=== PATIENT | female | born 1955 | race Caucasian/White ===

== ENCOUNTER → 2018-12-08 15:54 | Outpatient (CLI) | payer OTHER, SELFPAY ==
--- NOTE | 2018-12-08 | COLBX_PTH ---
PATIENT: JOANNE CAREY LOC: [facility] U#:[id number] AGE/SX: 69/F ROOM: RE12/08/[address]: Dr. Benson Lopes MD : [id number] BED: DIS: SPEC #: [id number] RECD: 12/08/18 15:51 STATUS: FREDERIC SAENZLeda #: [id number] MUKUND: 12/08/18 00:[address]: Benson Lopes DEPT: SURGICAL PATHOLOGY RECD BY: Julia Josue ENTERED: 12/10/18 16:56 SP TYPE: COLON BX OTHR DR: Dr. Gabby Rod DO Tissues: Rectum, NOS Procedures: Surgery Specimen Level IV HEADER OPERATION: Colonoscopy with hot snare and with coag Argon plasma PRE-OP DIAGNOSIS: Z86.010 TISSUE SUBMITTED: Rectal polyps MICROSCOPIC DIAGNOSIS Rectal polyps, biopsy: Fragments of tubulovillous adenoma. SJ:terrance 12/12/18 MICROSCOPIC DESCRIPTION Slides are reviewed. GROSS DESCRIPTION Received in fixative is one container labeled with the patient's name and designated rectal polyps. The specimen consists of multiple fragments of cornelius-pink polyp that in aggregate measure 2.5 x 2 x 0.3 cm. The entire specimen is submitted in one cassette. / SJ:terrance 12/11/18 TC:1 CPT: 28921
== END ==
PROVIDERS: Family Provider Internal Medicine; PCP Internal Medicine; Referring Provider Surgery; Visit Provider Surgery
DX: Z86.010 Personal history of colon polyps (principal)
CPT/HCPCS: 88305

== ENCOUNTER 2024-02-07 10:16 | Inpatient (IN) | payer MEDICARE, BC, SELFPAY ==
[2024-02-07] VITALS (29 sets, daily range): BP systolic 89–154; BP diastolic 46–104; PULSE 82–241; RESP 12–20; TEMP 36.6–37.1; O2SAT 88–100; BMI 42.6; BMI 39.7
--- NOTE | 2024-02-07 10:22 | EKG12_ITS ---
Test Reason : HIGH HR Blood Pressure : */* mmHG Vent. Rate : 185 BPM Atrial Rate : * BPM P-R Int : * ms QRS Dur : 72 ms QT Int : 234 ms P-R-T Axes : * 31 221 degrees QTcB Int : 410 ms Critical Test Result: High HR Atrial fibrillation with rapid ventricular response Septal infarct , age undetermined Marked ST abnormality, possible inferior subendocardial injury Marked ST abnormality, possible anterolateral subendocardial injury Abnormal ECG Confirmed by HÉCTOR ZAMORA MD ([id number]), city editor MAURILIO HERNANDEZ ([id number]) on 02/09/2024 10:43:50 AM Referred By: Confirmed By: HÉCTOR ZAMORA MD
--- NOTE | 2024-02-07 10:22 | RAD_ITS ---
STUDY: X-RAY CHEST REASON FOR EXAM: Female, 68 years old. Palpitations TECHNIQUE: Single AP portable view of the chest. COMPARISON: None. FINDINGS: EKG electrodes are seen. The lungs are clear and expanded. There is no demonstrated pleural abnormality. Normal size heart. Normal mediastinum and violeta. Normal visualized pulmonary arteries. There is atherosclerotic tortuosity of the aortic arch and descending thoracic aorta. There are diffuse degenerative changes of the visualized thoracic spine. Normal visualized ribs, clavicles, and shoulders. There is no demonstrated abnormality of the visualized soft tissue structures of the upper abdomen. RAD/Chest 1 View (Portable) IMPRESSION: No acute abnormality is seen. Electronically Signed: Donald Hull MD at 10:54 EST ,
--- NOTE | 2024-02-07 10:26 | EDS_ITS ---
HPI History of Present Illness Chief Complaint: Palpitations Informant: patient and EMS Narrative Narrative: 68-year-old female presenting to the emergency room with chief complaint of A- fib. Patient states that she woke this morning at 0500 hrs. feeling her heart having palpitations. She attempted to ambulate but became dyspneic. She went saw her primary care provider who did an EKG that showed A-fib. She has no history of atrial fibrillation. She currently takes no medications. She denies any chest pain. She notes exertional dyspnea. She notes that she had COVID in October and a few weeks later had a cough sore throat and fever. Those symptoms have resolved. [facility] Medical History (Updated 02/07/24 @ 10:[address] Macho Luna DO) Abnormality of breast on screening mammography IBS (irritable bowel syndrome) Tubulovillous adenoma Rectal polyp Hyperlipemia Colonic polyp Prediabetes Obesity Home Medications ?Medication ?Instructions ?Recorded ?Last Taken ?Type NK 02/07/24 Unknown History Allergy/AdvReac Type Severity Reaction Status Date / Time No Known Allergies Allergy Verified 02/07/24 10:28 Social History Smoking Status: Never smoker ROS ROS ED Constitutional Constitutional ED: Denies chills or weight loss Eyes Eyes: Denies change in vision or diplopia ENT ENT ED: Denies ear pain, rhinorrhea or sore throat Cardiovascular Cardiovascular: Reports palpitations and racing heartbeat; Denies chest pain or orthopnea Respiratory/Chest Respiratory/Chest: Reports dyspnea and dyspnea on exertion; Denies cough or orthopnea Gastrointestinal Gastrointestinal: Denies abdominal pain, diarrhea, nausea or vomiting Genitourinary Genitourinary ED: Denies dysuria, hematuria or urinary frequency Musculoskeletal Musculoskeletal: Denies arthralgias or myalgias Integumentary Denies abscess or rash Neurologic Neurologic: Denies headache(s) or weakness Psychiatric Psychiatric: Denies anxiety, depression, suicidal ideation or suicidal thoughts Endocrine Endocrinology: Denies polydipsia, polyphagia or polyuria Allergic/Immunologic Allergic/Immunologic ED: Denies mouth swelling, tongue swelling or urticaria EXAM Physical Exam Const Vital Signs: 02/07/24 10:16 02/07/24 10:24 02/07/24 10:46 Temperature 98.7 F Temperature Source Oral Pulse Rate 241 H 136 H 133 H Respiratory Rate 18 20 H 18 Blood Pressure 154/94 H 154/94 H 131/85 H Blood Pressure Mean 114 114 100 Pulse Ox 88 97 98 Oxygen Delivery Method Room Air Nasal Cannula Nasal Cannula Oxygen Flow Rate (L/min) 2 2 02/07/24 11:16 02/07/24 11:29 02/07/24 11:30 Temperature 98 F Temperature Source Oral Pulse Rate 130 H 130 H 130 H Respiratory Rate 18 14 18 Blood Pressure 134/70 H 134/74 H 138/86 H Blood Pressure Mean 91 94 103 Pulse Ox 98 99 98 Oxygen Delivery Method Nasal Cannula Nasal Cannula Nasal Cannula Oxygen Flow Rate (L/min) 2 2 2 Positive well nourished and well developed General Appearance ED: well developed and NAD HEENT Reports normocephalic, head/scalp atraumatic and moist mucous membranes Eyes PERRL and EOMs intact bilaterally Neck no lymphadenopathy, supple and no JVD Resp normal respiratory effort and clear to auscultation bilaterally Cardio no murmurs Rate: tachycardic Rhythm: abnormal rhythm irregularly irregular GI normal to inspection, nondistended, normoactive bowel sounds and non-tender Palpation: soft Back/Spine no CVA tenderness and normal ROM Extremity normal to inspection General Extremety ED: Negative for edema General Extremity: Negative for edema Neuro oriented x3 and CN's II-XII intact bilaterally Sensorium / Orientation: alert Motor Exam: strength 5/5 throughout Psych mental status grossly normal Mood & Affect: Negative for depressed or tearful Skin no rashes or lesions noted and no wounds MDM MDM MDM Narrative Medical decision making narrative: Differential diagnosis includes but not limited to cardiac dysrhythmia pulmonary embolism electrolyte abnormality anemia thyroid dysfunction coronary artery disease Initial EKG shows atrial fibrillation with rapid ventricular response. While I was speaking with the patient obtaining the history and physical the patient's morphology changed and she went into a narrow complex rate of around 244. She appeared slightly more pale but was not hypotensive. This lasted for approximately 2 minutes and then she went back into A-fib with RVR on the monitor. Patient received a 20 mg Cardizem bolus. This lowered her heart rate to around 130 and she began to feel better. My independent interpretation of the chest x- ray is no acute process. White count 8.1 hemoglobin 15.6 platelet count 334. Sodium potassium magnesium within normal limits. Troponin 16. TSH 1.33. [id number] score is 1. Patient's heart rate continues to be greater than 100 (133bpm at 1123 hrs) she was placed on a Cardizem drip. Plan will be admission into hospital. History & Record Review Discussion w/independent historian: EMS personnel and Patient Lab Data Attestation: I reviewed the patient's lab results. Labs: Laboratory Results - last 24 hr 02/07/24 10:12 WBC 8.1 RBC 5.10 Hgb 15.6 H Hct 46.0 MCV 90.2 MCH 30.6 MCHC 33.9 RDW Std Deviation 43.6 RDW Coeff of Irma 13.1 Plt Count 334 MPV 9.9 Immature Gran % (Auto) 0.200 Neut % (Auto) 48.5 Lymph % (Auto) 36.3 Mower % (Auto) 10.4 H Eos % (Auto) 3.9 Baso % (Auto) 0.7 Absolute Neuts (auto) 3.9 Absolute Lymphs (auto) 2.94 Nucleated RBC % 0 Sodium 141 Potassium 4.2 Chloride 108 H Carbon Dioxide 27.0 Anion Gap 5 BUN 17 Creatinine 0.92 Estim Creat Clear Calc 71.04 Est GFR (MDRD) Af Amer 78 Est GFR (MDRD) Non-Af 64 BUN/Creatinine Ratio 18.4 Glucose 135 H Calcium 9.5 Magnesium 2.0 Troponin I High Sens 16 TSH 1.330 Radiography Diagnostic Testing: Clinical Impression(s) from Imaging Studies Chest X-Ray 02/07/24 10:22 IMPRESSION: No acute abnormality is seen. Electronically Signed: Donald Hull MD at 10:54 EST , Management Discussion w/another healthcare provider: Hospitalist (Dr Smart) and Wireless Sales Manager (Dr Alston) Discharge Plan Dx/Rx/DC Orders Clinical Impression: Atrial fibrillation with RVR Disposition [facility]
[2024-02-07] MEDS: dilTIAZem 25 MG/5 ML Vial 20 MG IV BOLUS ×2 (10:30→11:28)
[2024-02-07 10:41] LABS: Absolute Lymphocyte Count 2.94 X10^3/uL (0.83-4.51); Absolute Neutrophil Count 3.9 X10^3/uL (2.0-7.7); Basophil# 0.06 X10^3/uL; Basophil% 0.7 % (0-1); Eosinophil# 0.32 X10^3/uL; Eosinophils% 3.9 % (0-5); Hemoglobin 15.6 g/dL (12.0-15.0); Lymphocyte # 2.94 X10^3/ul (0.83-4.51); Lymphocyte % 36.3 % (19-41); Mean Corp Hgb Conc 33.9 g/dL (32-36); Mean Corpuscular Hgb 30.6 pg (27.0-32.0); Mean Corpuscular Volume 90.2 fL (81-99); Mean Platelet Vol. 9.9 fl (6.2-12.0); Monocyte# 0.84 X10^3/uL; Monocyte% 10.4 % (0-10); NRBC Flagged by Analyzer 0 % (0-5); Neutrophil # 3.93 X10^3/uL (2.7-7.7); Neutrophil % 48.5 % (47-70); Platelet Count 334 K/mm3 (150-450); RBC Distribution Width CV 13.1 % (11.6-14.6); RBC Distribution Width SD 43.6 fl (35.1-43.9); White Blood Count 8.1 K/mm3 (4.4-11.0)
[2024-02-07 11:09] LABS: Anion Gap 5 (5-15); BUN 17 mg/dL (7-18); BUN/Creat Ratio 18.4 RATIO (10-20); Calcium,Total 9.5 mg/dL (8.5-10.1); Chloride 108 mmol/L (98-107); Creatinine, Serum 0.92 mg/dL (0.55-1.02); EST Glomerular Filtration Rate 64 mL/min (>60); Est Glom Filt Rate - Afr Amer 78 mL/min (>60); Estimated Creatinine Clearance 71.04 ml/min; Glucose 135 mg/dL (74-106); Potassium 4.2 mmol/L (3.5-5.1); Sodium Level 141 mmol/L (136-145); Troponin-I HS 16 pg/mL (3.0-54.0)
[2024-02-07] MEDS: Diltiazem 125 MG in Dextrose 5%-Water (100mL Bag) 100 ML IV (11:29)
--- NOTE | 2024-02-07 12:22 | HP.PCM.HOS_ITS ---
HPI - General General Date of Admission: 02/07/24 Date of Service: 02/07/24 Chief Complaint: Palpitations and shortness of breath HPI Narrative JOANNE CAREY, is a 68 F who presented to [facility] ED on 02/07/2024 with palpitations and shortness of breath. Patient woke up this morning at 5 AM having palpitations. Denies any previous history of palpitations. She got up and attempted to ambulate but became short of breath and dizzy with this. She saw her primary care provider this morning who did an EKG and found A-fib with RVR. Patient has no significant medical history, is on no medications at home. She was then sent to the ED for further evaluation. EKG in the ED showed A-fib with RVR with rate around 150. Patient's blood pressure was normotensive. She was given a 20 mg Cardizem bolus and this lowered her heart rate to around 130 and she felt improved with this. Labs were fairly unremarkable. TSH normal. Potassium and magnesium are normal. Patient did not convert after the Cardizem bolus and heart rate remained in the 130s to low 140s, so she was started on a Cardizem drip and hospitalist was contacted for admission. I saw the patient at bedside in the ED, son and sister were present. Patient was sitting up comfortably in bed, conversing normally, no acute distress. She was breathing comfortably on room air. She denied any palpitations currently. Denied any shortness of breath at rest. Her heart rate was maintaining in the 130s on telemetry during my encounter with her. Patient denies any prior cardiac history. She is not a smoker. She does not drink alcohol regularly. She drinks minimal caffeine. She has never had an episode like this before. She otherwise denies any acute pain or discomfort. Will be admitted for further management. [facility] Medical History (Updated 02/08/24 @ 08:[address] Mike Alston MD) Abnormality of breast on screening mammography IBS (irritable bowel syndrome) Tubulovillous adenoma Rectal polyp Hyperlipemia Colonic polyp Prediabetes Obesity Home Medications ?Medication ?Instructions ?Recorded ?Last Taken ?Type ruxolitinib 1.5 % topical cream 1 applic topical BID skin condition 02/07/24 02/06/24 History (Opzelura) Allergy/AdvReac Type Severity Reaction Status Date / Time No Known Allergies Allergy Verified 02/07/24 10:28 Social History Smoking Status: Never smoker ROS Constitutional Constitutional: Denies chills, fatigue, fever(s) or weakness Eyes Eyes: Denies change in vision Cardiovascular Cardiovascular: Reports dyspnea on exertion and rapid heart rate; Denies chest pain, lightheadedness, palpitations or syncope Respiratory/Chest Respiratory/Chest: Denies cough, shortness of breath at rest or wheezing Gastrointestinal Gastrointestinal: Denies abdominal pain Neurologic Neurologic: Denies dizziness or headache(s) Vital Signs Vital Signs Vital Signs: 02/07/24 10:16 02/07/24 10:24 02/07/24 10:46 Temperature 98.7 F Temperature Source Oral Pulse Rate 241 H 136 H 133 H Respiratory Rate 18 20 H 18 Blood Pressure 154/94 H 154/94 H 131/85 H Blood Pressure Mean 114 114 100 Pulse Ox 88 97 98 Oxygen Delivery Method Room Air Nasal Cannula Nasal Cannula Oxygen Flow Rate (L/min) 2 2 02/07/24 11:16 02/07/24 11:29 02/07/24 11:30 Temperature 98 F Temperature Source Oral Pulse Rate 130 H 130 H 130 H Respiratory Rate 18 14 18 Blood Pressure 134/70 H 134/74 H 138/86 H Blood Pressure Mean 91 94 103 Pulse Ox 98 99 98 Oxygen Delivery Method Nasal Cannula Nasal Cannula Nasal Cannula Oxygen Flow Rate (L/min) 2 2 2 Weight Weight: 111 kg Body Mass Index (BMI) 42.6 Physical Exam Const alert, oriented x3 and no apparent distress Constitutional Narrative: Pleasant elderly female, class II obesity, sitting up comfortably in bed, conversing normally, no acute distress. General Appearance: cooperative and comfortable HEENT normocephalic, head/scalp atraumatic, hearing grossly normal bilaterally, nasal mucous membranes and turbinates normal and moist oral mucous membranes Eyes PERRL, EOMs intact bilaterally and conjunctivae normal Neck full ROM Chest inspection of chest normal Resp normal respiratory effort, normal air movement, no use of accessory muscles and clear to auscultation bilaterally Cardio no murmurs and peripheral pulses 2+ throughout Cardio Narrative: Tachycardic, irregular rhythm. GI normal to inspection, nondistended, normoactive bowel sounds, soft to palpation, non-tender and non-distended Back/Spine normal ROM Extremity normal to inspection, full ROM and no pedal edema Skin no rashes or lesions noted Psych mental status grossly normal Results Lab / Micro Data 02/08/24 05:58 02/08/24 05:58 Labs: Laboratory Results - last 24 hr 02/07/24 10:12: WBC 8.1, RBC 5.10, Hgb 15.6 H, Hct 46.0, MCV 90.2, MCH 30.6, MCHC 33.9, RDW Std Deviation 43.6, RDW Coeff of Irma 13.1, Plt Count 334, MPV 9.9, Immature Gran % (Auto) 0.200, Neut % (Auto) 48.5, Lymph % (Auto) 36.3, Clare % (Auto) 10.4 H, Eos % (Auto) 3.9, Baso % (Auto) 0.7, Absolute Neuts (auto) 3.9, Absolute Lymphs (auto) 2.94, Nucleated RBC % 0, Sodium 141, Potassium 4.2, C hloride 108 H, Carbon Dioxide 27.0, Anion Gap 5, BUN 17, Creatinine 0.92, Estim Creat Clear Calc 71.04, Est GFR (MDRD) Af Amer 78, Est GFR (MDRD) Non-Af 64, BUN/Creatinine Ratio 18.4, Glucose 135 H, Calcium 9.5, Magnesium 2.0, Troponin I High Sens 16, TSH 1.330 Imaging Radiology Impression Chest X-Ray 02/07/24 10:22 IMPRESSION: No acute abnormality is seen. Electronically Signed: Donald Hull MD at 10:54 EST , Assessment & Plan Assessment/Plan (1) Atrial fibrillation with RVR: PLAN: Plan Patient is a 68-year-old female who presented [facility] ED on 02/07/2024 with palpitations. 1. New onset A-fib with RVR ? Admit under inpatient status to PCU. EKG on admit showed A-fib with RVR with rate in the 140s. On review of telemetry it appears patient's heart rate is regularly irregular with possible sawtooth pattern waves noted concerning for atrial flutter. TSH normal. Will continue treating with Cardizem drip for now and start p.o. Lopressor 25 mg twice daily. If patient has not converted to sinus rhythm by tomorrow morning, will plan to consult cardiology. Echo ordered. [id number] score of 2 for age and female. Gave dose of therapeutic Lovenox in the ED and will start on Eliquis 5 mg twice daily. 2. Class II obesity ? BMI 39 on admit. Encouraged lifestyle modifications. Complicates hospital course, care and prognosis. DVT prophylaxis: Lovenox CODE STATUS: Full code, verified Expected disposition: Home, 2 to 3 days Total clinical time spent by myself addressing the patient's medical issues, reviewing all the data, and collaborating with patient's care team: 55 minutes. Charges/Coding Visit Charges Inpatient E&M: 99161 Init Hosp L2
--- NOTE | 2024-02-07 12:26 | ECHOCS_ITS ---
Reason For Study: Afib, Aflutter Procedure This was a 2D Doppler, Color Flow transthoracic echocardiogram. Contrast injection was performed. Exam performed portable in patient room. Left Ventricle Normal LV size. Left ventricular systolic function is normal. The left ventricular ejection fraction is 60 %. No regional wall motion abnormalities noted. Right Ventricle Normal RV size. Normal systolic function. Atria Normal left atrium. Normal right atrium. Bubble contrast study negative for right to left interatrial shunt. Mitral Valve Normal mitral valve. Tricuspid Valve Normal tricuspid valve. Aortic Valve Trisinus/trileaflet aortic valve. Pulmonic Valve The pulmonic valve is not well visualized. Great Vessels Normal aortic root. The pulmonary artery is normal size. Inferior vena cava collapse with respiration. Pericardium/Pleural No pericardial effusion. Medication Performed a rapid injection of agitated mix of 9 cc saline and 1cc air to assess for atrial septal defect. Diluted definity 2.5ml given slow IV push to enhance endocardial definition. MMode/2D Measurements & Calculations LVIDd: 4.2 cm IVSd: 1.3 cm asc Aorta Diam: 3.1 cm LVIDs: 3.0 cm LVPWd: 1.3 cm RVDd: 3.8 cm FS: 29.4 % LAV(MOD-bp): 43.7 ml LVAd ap4: 28.5 cm2 SV(MOD-sp4): 57.4 ml LAV(MOD-bp) Indexed: 20.8 ml/m2 LVLd ap4: 7.6 cm SI(MOD-sp4): 27.3 ml/m2 LAV(MOD-sp2): 44.1 ml EDV(MOD-sp4): 89.3 ml LAV(MOD-sp4): 36.5 ml EDV(sp4-el): 90.2 ml LVAs ap4: 14.8 cm2 LVLs ap4: 6.1 cm ESV(MOD-sp4): 32.0 ml ESV(sp4-el): 30.7 ml EF(MOD-sp4): 64.2 % EF(sp4-el): 66.0 % SV(sp4-el): 59.6 ml LA A4 area: 15.9 cm2 LA dimension(2D): 3.9 cm RA A4 area: 14.5 cm2 TAPSE: 1.7 cm Doppler Measurements & Calculations MV E max tad: 57.2 cm/sec Lat Peak E' Tad: 18.2 cm/sec Med Peak E' Tad: 15.1 cm/sec E/E' lat: 3.1 E/E' med: 3.8 Ao V2 max: 121.9 cm/sec LV V1 max: 83.6 cm/sec PA V2 max: 59.2 cm/sec Ao max P.0 mmHg LV V1 max P.8 mmHg Ao V2 mean: 90.5 cm/sec LV V1 mean P.5 mmHg Ao mean P.5 mmHg LV V1 mean: 57.2 cm/sec Ao V2 VTI: 22.8 cm LV V1 VTI: 17.2 cm AV (velocity ratio): 0.75 TR max tad: 236.9 cm/sec TR max P.5 mmHg ECHO/Echo Complete W/ Contrast Interpretation Summary Normal LV size. Left ventricular systolic function is normal. The left ventricular ejection fraction is 60 %. Bubble contrast study negative for right to left interatrial shunt. Contrast injection was performed. Ordering Physician: Harley Smart Referring Physician: Tong Mo Performed By: Tiffanie Vergara RDCS, RVT
[2024-02-07] MEDS: Metoprolol Tartrate 25 MG Tablet PO ×2 (12:59→21:11)
[2024-02-07] MEDS: Enoxaparin 100 MG/ML Syringe SC (12:59)
[2024-02-07 19:27] LABS: Hemoglobin A1c 5.8 % (3.8-5.6)
[2024-02-07] MEDS: Diltiazem 125 MG in Dextrose 5%-Water (100mL Bag) 100 ML 15 MG IV (21:09)
[2024-02-07] MEDS: APIXABAN 5 MG TABLET PO (21:11)
[2024-02-07] MEDS: 0.9% Saline Lock 10 ML Syringe IV (21:18)
[2024-02-08] VITALS (26 sets, daily range): BP systolic 101–135; BP diastolic 47–82; PULSE 70–108; RESP 11–23; TEMP 36.2–36.6; O2SAT 94–99
[2024-02-08] MEDS: Diltiazem 125 MG in Dextrose 5%-Water (100mL Bag) 100 ML 15 MG IV (04:42)
[2024-02-08 06:26] LABS: Hematocrit 46.2 % (37-47); Hemoglobin 15.6 g/dL (12.0-15.0); Mean Corp Hgb Conc 33.8 g/dL (32-36); Mean Corpuscular Hgb 30.6 pg (27.0-32.0); Mean Corpuscular Volume 90.8 fL (81-99); Mean Platelet Vol. 9.9 fl (6.2-12.0); Platelet Count 285 K/mm3 (150-450); RBC Distribution Width CV 13.2 % (11.6-14.6); RBC Distribution Width SD 43.8 fl (35.1-43.9); Red Blood Count 5.09 M/mm3 (4.2-5.4); White Blood Count 6.9 K/mm3 (4.4-11.0)
[2024-02-08 06:48] LABS: Anion Gap 5 (5-15); BUN 16 mg/dL (7-18); BUN/Creat Ratio 22.4 RATIO (10-20); Chloride 110 mmol/L (98-107); Cholesterol 322 mg/dL (200); Creatinine, Serum 0.71 mg/dL (0.55-1.02); EST Glomerular Filtration Rate 87 mL/min (>60); Est Glom Filt Rate - Afr Amer 105 mL/min (>60); Glucose 122 mg/dL (74-106); High Density Lipoprotein 59 mg/dL; Potassium 3.8 mmol/L (3.5-5.1); Sodium Level 138 mmol/L (136-145); Triglycerides 87 mg/dL; Very Low Density Lipoprotein 17 mg/dL (5-40)
--- NOTE | 2024-02-08 08:03 | PCM.CONS.C ---
Assessment & Plan Assessment/Plan (1) Atrial fibrillation with RVR: PLAN: Patient presents with atrial fibrillation with a rapid ventricular response rate. The exact precipitating etiology is not clear at this particular time. She does have a [id number] score of 2 and my recommendation at this time is to continue with anticoagulation, rate control with a beta-catherine and try and wean her off the diltiazem. She can be seen as an outpatient if her rate is better controlled for possible DC cardioversion. (2) Hyperlipemia: PLAN: She does have a severely elevated LDL. I would recommend at this time that she start a high intensity statin. At some point she would need a coronary calcium score for further evaluation and risk stratification. Thank you for allowing me to participate in the care of your patient. Please don't hesitate to call if any issues arise. HPI Consult Data Date of Consult: 02/08/24 HPI Narrative HPI Narrative: JOANNE CAREY, is a 68 F who presented to the emergency room on 1217 with palpitations and shortness of breath. She woke up yesterday with with the same. She says that she had not taken any increased amount of caffeinated beverages. She is under a lot of amount of stress. In the emergency room she was noted to be in atrial fibrillation with rapid ventricular response rate at about 150. She had previously presented to the urgent care facility. Blood work was done which was noted to be unremarkable. Electrolytes were unremarkable cardiology was consulted she was given intravenous diltiazem and then subsequently transferred to the telemetry unit. Cardiology was called this morning for further evaluation and management. She denies any chest pain or shortness of breath or paroxysmal nocturnal dyspnea pedal edema she had an echocardiogram performed which demonstrated preserved ejection fraction. [facility] Medical History (Updated 02/08/24 @ 08:[address] Mike Alston MD) Abnormality of breast on screening mammography IBS (irritable bowel syndrome) Tubulovillous adenoma Rectal polyp Hyperlipemia Colonic polyp Prediabetes Obesity Home Medications ?Medication ?Instructions ?Recorded ?Last Taken ?Type ruxolitinib 1.5 % topical cream 1 applic topical BID skin condition 02/07/24 02/06/24 History (Opzelura) Allergy/AdvReac Type Severity Reaction Status Date / Time No Known Allergies Allergy Verified 02/07/24 10:28 Social History Smoking Status: Never smoker ROS Constitutional Constitutional: Denies fever(s) or weight loss Eyes Eyes: Reports systems reviewed and no addt'l complaints, except as documented ENT HEENT: Reports systems reviewed and no addt'l complaints, except as documented Cardiovascular Cardiovascular: Denies chest pain at rest, chest pain with activity, dyspnea at rest, dyspnea on exertion, edema, palpitations or paroxysmal nocturnal dyspnea Respiratory/Chest Respiratory/Chest: Denies dyspnea on exertion, productive cough, shortness of breath at rest or shortness of breath with exertion Gastrointestinal Gastrointestinal: Denies change in bowel habits, nausea, vomiting or weight changes Genitourinary Genitourinary: Denies difficulty urinating Musculoskeletal Musculoskeletal: Denies joint stiffness or muscle weakness Integumentary Integumentary: Denies lesions Neurologic Neurologic: Denies dizziness or syncope Psychiatric Psychiatric: Denies anxiety Endocrine Endocrinology: Denies excessive sweating or fatigue Hematologic/Lymphatic Hematologic/Lymphatic: Denies anemia Allergic/Immunologic Allergic/Immunologic: Denies seasonal rhinorrhea Physical Exam Const alert, oriented x3 and no apparent distress General Appearance: cooperative HEENT hearing grossly normal bilaterally Head and Scalp: atraumatic Eyes EOMs intact bilaterally Neck General: normal visual inspection Chest inspection of chest normal and palpation of chest normal Resp normal respiratory effort Auscultation: clear to auscultation bilaterally Cardio S1 normal heart sound and S2 normal heart sound Jugular Venous Distention: JVD Rhythm: abnormal rhythm irregularly irregular GI normal to inspection, nondistended, normoactive bowel sounds Extremity normal capillary refill and no pedal edema Peripheral Pulses: Yes pulses 2+ throughout and femoral pulses present Skin no rashes or lesions noted Neuro oriented x3 and CN's II-XII intact bilaterally Psych Appearance: grossly normal and appropriate Risk Stratification Risk Stratification Applicable: No Objective Data Vital Signs: Vital Signs Temp Pulse Resp BP Pulse Ox O2 Del Method O2 Flow Rate 97.8 F 99 23 H 107/65 98 Room Air 2 02/08/24 03:00 02/08/24 07:00 02/08/24 07:00 02/08/24 07:00 02/08/24 07:00 02/08/24 07:00 02/07/24 12:00 Oxygen Flow Rate (L/min) 2 Oxygen Delivery Method Room Air Weight: 231 lb 7.766 oz Body Mass Index (BMI) 39.7 Intake & Output: Intake and Output for Last 24 Hours 02/06/24 02/07/24 02/08/24 23:59 23:59 23:59 Intake Total 510.08 / 645.08 240.0 / 240.0 Balance 510.08 / 645.08 240.0 / 240.0 Lab / Micro Data 02/08/24 05:58 02/08/24 05:58 Labs: Laboratory Results - last 24 hr 02/07/24 10:12: WBC 8.1, RBC 5.10, Hgb 15.6 H, Hct 46.0, MCV 90.2, MCH 30.6, MCHC 33.9, RDW Std Deviation 43.6, RDW Coeff of Irma 13.1, Plt Count 334, MPV 9.9, Immature Gran % (Auto) 0.200, Neut % (Auto) 48.5, Lymph % (Auto) 36.3, Lynn % (Auto) 10.4 H, Eos % (Auto) 3.9, Baso % (Auto) 0.7, Absolute Neuts (auto) 3.9, Absolute Lymphs (auto) 2.94, Nucleated RBC % 0, Sodium 141, Potassium 4.2, Chloride 108 H, Carbon Dioxide 27.0, Anion Gap 5, BUN 17, Creatinine 0.92, Estim Creat Clear Calc 71.04, Est GFR (MDRD) Af Amer 78, Est GFR (MDRD) Non-Af 64, BUN/Creatinine Ratio 18.4, Glucose 135 H, Hemoglobin A1c 5.8 H, Calcium 9.5, Magnesium 2.0, Troponin I High Sens 16, TSH 1.330 02/08/24 05:58: WBC 6.9, RBC 5.09, Hgb 15.6 H, Hct 46.2, MCV 90.8, MCH 30.6, MCHC 33.8, RDW Std Deviation 43.8, RDW Coeff of Irma 13.2, Plt Count 285, MPV 9.9, Sodium 138, Potassium 3.8, Chloride 110 H, Carbon Dioxide 24.0, Anion Gap 5, BUN 16, Creatinine 0.71, Estim Creat Clear Calc 80.60, Est GFR (MDRD) Af Amer 105, Est GFR (MDRD) Non-Af 87, BUN/Creatinine Ratio 22.4 H, Glucose 122 H, Calcium 9.0, Triglycerides 87, Cholesterol 322 H, LDL Cholesterol 246 H, VLDL Cholesterol 17, HDL Cholesterol 59 Cardiology Labs/Tests 02/07/24 10:12: WBC 8.1, RBC 5.10, Hgb 15.6 H, Hct 46.0, MCV 90.2, MCH 30.6, MCHC 33.9, Plt Count 334, MPV 9.9, Immature Gran % (Auto) 0.200, Neut % (Auto) 48.5, Lymph % (Auto) 36.3, Lynn % (Auto) 10.4 H, Eos % (Auto) 3.9, Baso % (Auto) 0.7, Absolute Neuts (auto) 3.9, Nucleated RBC % 0, Sodium 141, Potassium 4.2, Chloride 108 H, Carbon Dioxide 27.0, Anion Gap 5, BUN 17, Creatinine 0.92, Est GFR (MDRD) Af Amer 78, Est GFR (MDRD) Non-Af 64, BUN/Creatinine Ratio 18.4, Glucose 135 H, Hemoglobin A1c 5.8 H, Calcium 9.5, Magnesium 2.0 02/08/24 05:58: WBC 6.9, RBC 5.09, Hgb 15.6 H, Hct 46.2, MCV 90.8, MCH 30.6, MCHC 33.8, Plt Count 285, MPV 9.9, Sodium 138, Potassium 3.8, Chloride 110 H, Carbon Dioxide 24.0, Anion Gap 5, BUN 16, Creatinine 0.71, Est GFR (MDRD) Af Amer 105, Est GFR (MDRD) Non-Af 87, BUN/Creatinine Ratio 22.4 H, Glucose 122 H, Calcium 9.0, Triglycerides 87, Cholesterol 322 H, LDL Cholesterol 246 H, VLDL Cholesterol 17, HDL Cholesterol 59 Rhythm: EKG: ECHO: Stress Test: Cardiac Cath: PCI: CT Surgery: Holter monitor: EPS: PPM: CXR: Chest CT Scan: Radiography Diagnostic Testing: Radiology Impression Chest X-Ray 02/07/24 10:22 IMPRESSION: No acute abnormality is seen. Electronically Signed: Donald Hull MD at 10:54 EST , Echocardiogram 02/07/24 12:26 Interpretation Summary Normal LV size. Left ventricular systolic function is normal. The left ventricular ejection fraction is 60 %. Bubble contrast study negative for right to left interatrial shunt. Contrast injection was performed. Ordering Physician: Harley Smart Referring Physician: Tong Mo Performed By: Tifafnie Vergara RDCS, RVT
[2024-02-08] MEDS: APIXABAN 5 MG TABLET PO ×2 (09:28→21:08)
[2024-02-08] MEDS: Metoprolol Tartrate 50 MG Tablet PO ×3 (09:28→21:08)
--- NOTE | 2024-02-08 11:40 | CASEMGMT ---
NEVIN FOSTER Assessment: Face to Face with pt for initial transition planning/care coordination assessment. NEVIN FOSTER introduced self and role at [facility], pt voices understanding and consents to assessment. Pt is A&O x4 and answers all questions appropriately at this time. Pt sitting in bed in no distress. Pt son and daughter in room, pt agreeable to discussing DC plan with family in room. Care providers, pharmacy, and demographics verified/updated. Strata: 1 Admitting Dx: New Onset AFIB PCP: Chely Specialists: [facility] Preferred Pharmacy: [facility] Insurance: [employer] Prescription Benefit: yes LNOK: Daughter, Zunilda; Sister, Nirali. Living Arrangements: Pt lives alone in a 1 story home with no steps to enter. ADLs: Pt reports I at baseline. Transportation: Pt drives self and denies concerns with transportation. DME: Denies HHC/SNF: Denies Hx of. Pt states no concerns with going home at time of dc. Pt states no further concerns/needs. CM to follow. Advised pt to ask CM if any further question/concerns/needs arise, voices understanding. Pt Goal: Home Plan: Home with family support. Follow plan of care. Radha ROONEY CM
--- NOTE | 2024-02-08 11:44 | PCM.PN.HOSP ---
Reason for Visit Reason for Visit: Diagnoses Hyperlipidemia, unspecified (02/07/24) Unspecified atrial fibrillation (02/07/24) Subjective Subjective Saw patient at bedside this morning, son present. Patient appeared similar to yesterday, was sitting up comfortably in bed and in no acute distress. Currently denies any palpitations but did state that when she exerted herself overnight and this morning she did have worsening palpitations and some dizziness and lightheadedness. No other new concerns today. Objective Data Objective Data Vital Signs: Vital Signs Temp Pulse Resp BP Pulse Ox O2 Del Method O2 Flow Rate 97.2 F L 71 17 110/72 98 Room Air 2 02/08/24 09:00 02/08/24 11:15 02/08/24 11:15 02/08/24 11:15 02/08/24 11:15 02/08/24 11:15 02/07/24 12:00 Oxygen Flow Rate (L/min) 2 Oxygen Delivery Method Room Air Weight: 105 kg Body Mass Index (BMI) 39.7 Intake & Output: Intake and Output for Last 24 Hours 02/06/24 02/07/24 02/08/24 23:59 23:59 23:59 Intake Total 510.08 / 645.08 538.58 / 538.58 Balance 510.08 / 645.08 538.58 / 538.58 Lab / Micro Data 02/08/24 05:58 02/08/24 05:58 Labs: Laboratory Results - last 24 hr 02/07/24 10:12: Hemoglobin A1c 5.8 H 02/08/24 05:58: WBC 6.9, RBC 5.09, Hgb 15.6 H, Hct 46.2, MCV 90.8, MCH 30.6, MCHC 33.8, RDW Std Deviation 43.8, RDW Coeff of Irma 13.2, Plt Count 285, MPV 9.9, Sodium 138, Potassium 3.8, Chloride 110 H, Carbon Dioxide 24.0, Anion Gap 5, BUN 16, Creatinine 0.71, Estim Creat Clear Calc 80.60, Est GFR (MDRD) Af Amer 105, Est GFR (MDRD) Non-Af 87, BUN/Creatinine Ratio 22.4 H, Glucose 122 H, Calcium 9.0, Triglycerides 87, Cholesterol 322 H, LDL Cholesterol 246 H, VLDL Cholesterol 17, HDL Cholesterol 59 Radiography Diagnostic Testing: Radiology Impression Echocardiogram 02/07/24 12:26 Interpretation Summary Normal LV size. Left ventricular systolic function is normal. The left ventricular ejection fraction is 60 %. Bubble contrast study negative for right to left interatrial shunt. Contrast injection was performed. Ordering Physician: Harley Smart Referring Physician: Tong Mo Performed By: Tiffnaie Vergara, DEEJAY, RVT Physical Exam Const alert, oriented x3 and no apparent distress Constitutional Narrative: Pleasant elderly female, class II obesity, sitting up comfortably in bed, conversing normally, no acute distress. General Appearance: cooperative and comfortable HEENT normocephalic, head/scalp atraumatic, hearing grossly normal bilaterally, nasal mucous membranes and turbinates normal and moist oral mucous membranes Eyes PERRL, EOMs intact bilaterally and conjunctivae normal Neck full ROM Chest inspection of chest normal Resp normal respiratory effort, normal air movement, no use of accessory muscles and clear to auscultation bilaterally Cardio no murmurs and peripheral pulses 2+ throughout Cardio Narrative: Tachycardic, irregular rhythm. GI normal to inspection, nondistended, normoactive bowel sounds, soft to palpation, non-tender and non-distended Back/Spine normal ROM Extremity normal to inspection, full ROM and no pedal edema Skin no rashes or lesions noted Psych mental status grossly normal Assessment & Plan Assessment/Plan (1) Atrial fibrillation with RVR: PLAN: Plan Patient is a 68-year-old female who presented [facility] ED on 02/07/2024 with palpitations. 1. New onset A-fib with RVR ? Cardiology following. EKG on admit showed A-fib with RVR with rate in the 140s. On review of telemetry it appears patient's heart rate is regularly irregular with possible sawtooth pattern waves noted concerning for atrial flutter. TSH normal. Echo showed EF 60%, no other abnormalities. Started on Cardizem drip on admit along with p.o. Lopressor 25 mg daily. Rate improved on morning of 02/07 but remains in irregular rhythm. Per cardiology, discontinued Cardizem drip and increased to p.o. Lopressor 50 mg daily. [id number] score of 2 for age and female, will continue on Eliquis 5 mg twice daily. Continue cardiac monitoring. Hopeful for discharge home in the next 1 to 2 days. 2. Class II obesity ? BMI 39 on admit. Encouraged lifestyle modifications. Complicates hospital course, care and prognosis. 3. Hyperlipidemia ? Lipid profile with total cholesterol 322, LDL 246, HDL 59. Will start on atorvastatin 40 mg daily and continue this on discharge. DVT prophylaxis: Lovenox CODE STATUS: Full code, verified Expected disposition: Home, 1 to 2 days Total clinical time spent by myself addressing the patient's medical issues, reviewing all the data, and collaborating with patient's care team: 35 minutes. Charges/Coding Visit Charges Inpatient E&M: 43298 Subs Hosp L2
[2024-02-08] MEDS: 0.9% Saline Lock 10 ML Syringe IV (21:12)
[2024-02-09] VITALS (13 sets, daily range): BP systolic 94–119; BP diastolic 63–71; PULSE 55–137; RESP 16–18; TEMP 36.2–36.6; O2SAT 97–100
--- NOTE | 2024-02-09 08:13 | PCM.PN.CARD ---
Subjective Subjective Patient seen and evaluated. Still rather tachycardic this morning. Objective Data Vital Signs: Vital Signs Temp Pulse Resp BP Pulse Ox O2 Del Method O2 Flow Rate 97.6 F L 98 16 96/65 99 Room Air 2 02/09/24 08:08 02/09/24 08:08 02/09/24 08:08 02/09/24 08:08 02/09/24 08:08 02/09/24 08:08 02/07/24 12:00 Oxygen Flow Rate (L/min) 2 Oxygen Delivery Method Room Air Weight: 231 lb 7.766 oz Body Mass Index (BMI) 39.7 Intake & Output: Intake and Output for Last 24 Hours 02/07/24 02/08/24 02/09/24 23:59 23:59 23:59 Intake Total 510.08 / 645.08 902.33 / 1002.33 220 / 220 Balance 510.08 / 645.08 902.33 / 1002.33 220 / 220 Lab / Micro Data 02/08/24 05:58 02/08/24 05:58 Cardiology Labs/Tests Rhythm: EKG: ECHO: Stress Test: Cardiac Cath: PCI: CT Surgery: Holter monitor: EPS: PPM: CXR: Chest CT Scan: Physical Exam Const alert, oriented x3 and no apparent distress General Appearance: cooperative HEENT hearing grossly normal bilaterally Head and Scalp: atraumatic Eyes EOMs intact bilaterally Neck General: normal visual inspection Chest inspection of chest normal and palpation of chest normal Resp normal respiratory effort Auscultation: clear to auscultation bilaterally Cardio S1 normal heart sound and S2 normal heart sound Jugular Venous Distention: JVD Rhythm: abnormal rhythm irregularly irregular GI normal to inspection, nondistended, normoactive bowel sounds Extremity normal capillary refill and no pedal edema Peripheral Pulses: Yes pulses 2+ throughout and femoral pulses present Skin no rashes or lesions noted Neuro oriented x3 and CN's II-XII intact bilaterally Psych Appearance: grossly normal and appropriate Assessment & Plan Assessment/Plan (1) Atrial fibrillation with RVR: PLAN: Patient presents with atrial fibrillation with a rapid ventricular response rate. This appears to be more of an atrial flutter rhythm with a rate persisting at about 140 bpm. the exact precipitating etiology is not clear at this particular time. She does have a [id number] score of 2 and my recommendation at this time is to continue with anticoagulation, and perform a CIRA guided cardioversion. Hopefully then she can be discharged on medical therapy. Above discussed extensively with the patient and her son. (2) Hyperlipemia: PLAN: She does have a severely elevated LDL. I would recommend at this time that she start a high intensity statin. At some point she would need a coronary calcium score for further evaluation and risk stratification. Thank you for allowing me to participate in the care of your patient. Please don't hesitate to call if any issues arise.
[2024-02-09] MEDS: Metoprolol Tartrate 50 MG Tablet PO (08:22)
[2024-02-09] MEDS: APIXABAN 5 MG TABLET PO (08:22)
--- NOTE | 2024-02-09 08:41 | EKG12_ITS ---
Test Reason : Blood Pressure : */* mmHG Vent. Rate : 107 BPM Atrial Rate : 286 BPM P-R Int : * ms QRS Dur : 76 ms QT Int : 320 ms P-R-T Axes : * 12 -73 degrees QTcB Int : 427 ms Atrial flutter with variable A-V block Nonspecific ST abnormality Abnormal ECG When compared with ECG of 07-Feb-2024 10:23, MANUAL COMPARISON REQUIRED DATA IS UNCONFIRMED Confirmed by SERA NEFF, HÉCTOR ([id number]), writer editor NATO BORJA ([id number]) on 02/10/2024 9:56:47 AM Referred By: NICOLE Confirmed By: HÉCTOR ZAMORA MD
--- NOTE | 2024-02-09 08:41 | ECHOTEE_ITS ---
Reason For Study: AFIB Medication CIRA probe 6VT-D (SN [id number]) passed without difficulty. No complications were noted. Cetacaine Topical [place] given X3 orally. Versed 2 mg given slow IVP. Fentanyl 50 mcg given slow IVP. Performed a rapid injection of agitated mix of 9 cc saline and 1cc air to assess for atrial septal defect. Left Ventricle Normal LV size. Left ventricular systolic function is normal. The left ventricular ejection fraction is 60 %. No regional wall motion abnormalities noted. Right Ventricle Normal RV size. Normal systolic function. Atria Bubble contrast study is negative for PFO/ASD. Normal left atrium. No thrombus is detected in the left atrial appendage. Normal right atrium. Mitral Valve Normal mitral valve. Tricuspid Valve Normal tricuspid valve. Aortic Valve Trisinus/trileaflet aortic valve. Pulmonic Valve Normal pulmonic valve. Vessels Normal aortic root. Normal arch. The pulmonary artery is normal size. Pericardium No pericardial effusion. ECHO/Echo Transesophageal (CIRA) Interpretation Summary Normal LV size. Left ventricular systolic function is normal. The left ventricular ejection fraction is 60 %. Bubble contrast study is negative for PFO/ASD. No thrombus is detected in the left atrial appendage. Ordering Physician: Mike Alston Referring Physician: DAVID ROB Performed By: Priya Barnes RCS
--- NOTE | 2024-02-09 11:49 | EKG12_ITS ---
Test Reason : POST DCCV Blood Pressure : */* mmHG Vent. Rate : 69 BPM Atrial Rate : 69 BPM P-R Int : 150 ms QRS Dur : 80 ms QT Int : 388 ms P-R-T Axes : 50 7 18 degrees QTcB Int : 415 ms Normal sinus rhythm Normal ECG Confirmed by SERA NEFF, HÉCTOR ([id number]), manuscript editor MAURILIO HERNANDEZ ([id number]) on 02/10/2024 6:27:12 AM Referred By: Dea ZAMORA Confirmed By: HÉCTOR ZAMORA MD
--- NOTE | 2024-02-09 11:50 | PCM.OP.PRO2 ---
Problems Associated Problem List Diagnoses (1) Atrial fibrillation with RVR: Non-invasive Procedural Procedure Information Date of Procedure: 02/09/24 Pre-Procedure Diagnosis: Atrial flutter with a 2-1 conduction Post-Procedure Diagnosis: Same Procedure Performed:: Synchronized DC cardioversion Procedure Time Out: 11:40 Procedure Start Time: 11:45 Procedure Stop Time: 11:46 Special Medications: Intravenous Versed 4 mg. Description of procedure: Patient had undergone a trans esophageal echocardiogram with no evidence of left atrial appendage thrombus. Anterior-posterior pads were applied informed consent had been obtained. An additional 2 mg of Versed intravenously was given and 200 J of synchronized DC biphasic energy were applied with prompt reversal to sinus rhythm. Patient tolerated the procedure well. Procedure findings: Postprocedure EKG confirmed sinus rhythm.
--- NOTE | 2024-02-09 14:52 | PCM.DC ---
Discharge Instructions Diet Discharge Diet: No restrictions DC O2, CPAP, BIPAP needs Home O2 Discharge instructions: No Dressing / Incision Discharge Activity: - (See instructions below.) Return to work on:: 02/13/24 Follow Up Care Test Results: Test results from this visit will be discussed in further detail at your follow-up appointment, if applicable. Discharge Plan Admission Admit Date/Time: 02/07/24 12:23 Primary Reason for Your Visit: palpitations Attending Provider: Harley Smart Primary Care Provider: Tong Mo Consulting Providers: Mike Alston Instructions Patient Instructions: ED Cardioversion, Electrical Discharge Orders/Prescriptions Prescriptions: New Eliquis 5 mg tablet 5 mg PO BID 30 Days Qty: 60 0RF atorvastatin 40 mg tablet 40 mg PO QHS 30 Days Qty: 30 0RF metoprolol tartrate [Lopressor] 50 mg tablet 50 mg PO BID 30 Days Qty: 60 0RF Continued Opzelura 1.5 % cream 1 applic topical BID Referrals / Follow Up: Mike Alston MD [Med Staff - Active Staff] - Gabby Rod DO [Med Staff - Real Estate Director] - Tong Mo MD [Primary Care Provider] - Disposition Disposition (needs filled in before D/C Order can be placed): Home, Self Care
--- NOTE | 2024-02-09 14:58 | PCM.DC.SUM ---
Providers Date of Admission: 02/07/24 Date of Discharge: 02/09/24 Primary Care Physician: Dr. Tong Rob MD Consultations 02/08/24 07:10 Consult: Cardiology Routine Consulting Provider: Mike Alston Reason for Consult: new onset afib/flutter w/ rvr EMERGENT Consult: No MD Notified: Yes Date Notified: 02/08/24 Time Notified: 07:10 Method of Notification: Text Reason For Visit: NEW ONSET AFIB W/ RVR Diagnosis Discharge Diagnosis (1) Atrial fibrillation with RVR: Status: Acute Code(s): I48.91 - Unspecified atrial fibrillation Medications at Discharge Home Medications ruxolitinib 1.5 % topical cream (Opzelura) 1 applic topical BID skin condition 02/07/24 apixaban 5 mg tablet (Eliquis) 5 mg PO BID 30 days #60 tabs 02/09/24 atorvastatin 40 mg tablet 40 mg PO QHS 30 days #30 tabs 02/09/24 metoprolol tartrate 50 mg tablet (Lopressor) 50 mg PO BID 30 days #60 tabs 02/09/24 Hospital Course Operations None Procedures Cardioversion, EKG, Transesophageal Echo, Transthoracic echo and - (Chest x-ray) Summary of Care Provided Minutes Spent on Discharge: 35 Hospital Course: Patient is a 68-year-old female who presented [facility] ED on 02/07/2024 with palpitations. Hospital course as noted below. Discharged home in stable condition on 02/08. 1. New onset A-fib with RVR ? Cardiology followed. EKG on admit showed A-fib with RVR with rate in the 140s. On review of telemetry it appeared patient's heart rate was regularly irregular with possible sawtooth pattern waves noted concerning for atrial flutter. TSH normal. Echo showed EF 60%, no other abnormalities. He had improvement of rate on Cardizem drip in addition to p.o. Lopressor but did not convert. Had CIRA with cardioversion done on 02/08 with successful return to normal sinus rhythm. Remained in normal sinus rhythm until discharge. Notably with [id number] score of 2 for age and female. Discharged home on Eliquis and Lopressor 50 mg twice daily. Outpatient follow-up with cardiology as needed. 2. Class II obesity ? BMI 39 on admit. Encouraged lifestyle modifications. Complicates hospital course, care and prognosis. 3. Hyperlipidemia ? Lipid profile with total cholesterol 322, LDL 246, HDL 59. Patient noted she had elevated lipids at an office visit earlier this year and PCP gave her 3 months for lifestyle modifications. She noted that repeat lipid panel here was worse than previous. She was amenable to starting atorvastatin 40 mg daily on discharge. Total clinical time spent by myself addressing the patient's medical issues, reviewing all the data, and collaborating with patient's care team: 35 minutes. Physical Exam Const alert, oriented x3 and no apparent distress Constitutional Narrative: Pleasant elderly female, class II obesity, sitting up comfortably in bed, conversing normally, no acute distress. General Appearance: cooperative and comfortable HEENT normocephalic, head/scalp atraumatic, hearing grossly normal bilaterally, nasal mucous membranes and turbinates normal and moist oral mucous membranes Eyes PERRL, EOMs intact bilaterally and conjunctivae normal Neck full ROM Chest inspection of chest normal Resp normal respiratory effort, normal air movement, no use of accessory muscles and clear to auscultation bilaterally Cardio no murmurs and peripheral pulses 2+ throughout Cardio Narrative: Tachycardic, irregular rhythm. GI normal to inspection, nondistended, normoactive bowel sounds, soft to palpation, non-tender and non-distended Back/Spine normal ROM Extremity normal to inspection, full ROM and no pedal edema Skin no rashes or lesions noted Psych mental status grossly normal Weight / BMI Weight Weight: 105 kg Body Mass Index (BMI) 39.7 ABG / Lab / Microbiology Data 02/08/24 05:58 02/08/24 05:58 Radiography Diagnostic Testing: Radiology Impression Transesophageal Echocardiogram 02/09/24 08:41 Interpretation Summary Normal LV size. Left ventricular systolic function is normal. The left ventricular ejection fraction is 60 %. Bubble contrast study is negative for PFO/ASD. No thrombus is detected in the left atrial appendage. Ordering Physician: Mike Alston Referring Physician: TONG ROB Performed By: Priya Barnes RCS D/C Instructions Discharge Diet: No restrictions Return to work on: 02/13/24 DC O2, CPAP, BIPAP Needs Home O2 Discharge instructions: No Meaningful Use Info Meaningful Use Meaningful Use Diagnoses (Choose all that apply): None applicable Ischemic Stroke Statin Dosing Therapy Reference: STATIN DOSE THERAPY REFERENCE: * Patients > 75 years receive moderate or high dose statin therapy. * Patients 75 years or YOUNGER should receive HIGH intensity statin dose unless contraindicated. You will be required to document reason for non-treatment if statin daily dose does not meet guidelines. HIGH DOSE STATIN THERAPY DAILY Atorvastatin > than or = to 40 mg Rosuvastatin > than or = to 20 mg Amlodipine + Atorvastatin > than or = to 2.5/40 mg Ezetimibe + Simvastatin 10/80 mg Simvastatin 80mg Discharge Plan Admission Admit Date/Time: 02/07/24 12:23 Primary Reason for Your Visit: palpitations Attending Provider: Harley Smart Primary Care Provider: Tong Rob Consulting Providers: Mike Alston Instructions Patient Instructions: ED Cardioversion, Electrical Discharge Orders/Prescriptions Prescriptions: New Eliquis 5 mg tablet 5 mg PO BID 30 Days Qty: 60 0RF atorvastatin 40 mg tablet 40 mg PO QHS 30 Days Qty: 30 0RF metoprolol tartrate [Lopressor] 50 mg tablet 50 mg PO BID 30 Days Qty: 60 0RF Continued Opzelura 1.5 % cream 1 applic topical BID Referrals / Follow Up: Mike Alston MD [Med Staff - Active Staff] - Gabby Rod DO [Med Staff - Food Tester] - Tong Rob MD [Primary Care Provider] - Disposition Disposition (needs filled in before D/C Order can be placed): Home, Self Care Charges/Coding Visit Charges Inpatient E&M: 46206 Disch Hosp >30min
--- NOTE | 2024-02-09 15:21 | CASEMGMT ---
Patient has order for discharge. Patient is discharging on NEVIN Avalos CM called [facility] retail and copay is $540.57, 30 free trial card applied. RN CM in to discuss discharge with patient. Patient updated regarding copay and savings card applied. RN CM updated patient to follow-up with operational intelligence analyst if medication is too expensive. Patient voiced understanding and declined further needs or help at discharge. Patient had no further questions.
== END 2024-02-09 17:35 | disposition home or self-care (01) | DRG 309 ==
LOC: ED 11:36 → PCU 12:51
PROVIDERS: Admitting Provider Hospitalist; Emergency Provider Emergency Medicine; PCP Family Medicine; Visit Provider Hospitalist
DX: I48.91 Unspecified atrial fibrillation (principal); Z68.41 Body mass index [BMI] 40.0-44.9, adult; E66.812 Obesity, class 2; E78.5 Hyperlipidemia, unspecified
CPT/HCPCS: 36415; 71045; 80048; 80061; 83036; 83735; 84443; 84484; 85025; 85027; 93005; 93306; 93312; 93320; 93325; 94668; 99285; J7050; Q9957; A4216; C8929; J0153